=== PATIENT | female | born 1945 | race Caucasian/White ===

== ENCOUNTER 2018-01-21 15:02 | Inpatient (IN) ==
[2018-01-21] MEDS ORDERED: Fluticasone Propionate Nasal 50 MCG/SPRAY BOTTLE NS PRN (16:16)
[2018-01-21] MEDS: *HR* Metformin 500 MG TABLET PO SCH (18:01)
[2018-01-21] MEDS ORDERED: *HR* Dextrose 50 % in Water (Syg) 50 ML SYRINGE IVP PRN (20:25)
[2018-01-21] MEDS ORDERED: D5% in Water 1,000 ML IVC PRN (20:25)
[2018-01-21] MEDS ORDERED: Dextrose Gel 15 GM/37.5 ML TUBE PO PRN ×2 (20:25)
[2018-01-21] MEDS: Aspirin Enteric Coated 325 MG Tablet PO SCH (21:10)
[2018-01-21] MEDS: *HR* HYDROcodone/Acet 5/325 mg TABLET PO PRN (21:11)
[2018-01-21] MEDS: Magnesium Oxide 400 MG TABLET PO SCH (21:11)
[2018-01-21] MEDS: Gabapentin 100 MG CAPSULE PO SCH (21:11)
[2018-01-22 06:07] LABS: Basophils # 0.1 K/mcL (0.0-0.2); Basophils % 0.7 %; Eosinophils # 0.4 K/mcL (0.0-0.6); Eosinophils % 5.2 %; Hemoglobin 10.1 g/dL (11.5-15.4); Immature Granulocytes % 0.4 % (0-4); Lymphocytes % 29.2 %; Mean Corpuscular HGB Conc 33.7 g/dL (31.6-35.5); Mean Corpuscular Hemoglobin 30.7 pg (28.0-33.3); Mean Corpuscular Volume 91.2 fL (83.0-100.0); Mean Platelet Volume 9.7 fL (9.4-12.4); Monocytes # 0.7 K/mcL (0.0-1.3); Neutrophils # 3.8 K/mcL (1.6-8.9); Platelet Count 277 K/mcL (140-400); Red Blood Count 3.29 M/mcL (3.82-4.97); Red Cell Distribution Width 13.9 % (11.5-14.5); Segmented Neutrophils % 54.5 %
[2018-01-22 06:12] LABS: INR 1.2; Prothrombin Time 13.3 Seconds (9.4-12.1)
[2018-01-22] MEDS: *HR* HYDROcodone/Acet 5/325 mg TABLET PO PRN ×3 (06:23→22:06)
[2018-01-22 06:26] LABS: BUN/Creatinine Ratio 24 (6-26); Blood Urea Nitrogen 18 mg/dL (8-23); Calcium 9.5 mg/dL (8.6-10.3); Carbon Dioxide 27 mEq/L (23-29); Chloride 109 mEq/L (98-107); Glucose 146 mg/dL (70-105); Osmolality,Calculated 285 (280-300); Potassium 3.8 mEq/L (3.5-5.1); Sodium 135 mEq/L (136-145); eGFR For Non-African Americans > 60 (> 60)
[2018-01-22] MEDS: Vitamin B Complex/Vit C/Vit E 1 EACH TABLET PO SCH (08:09)
[2018-01-22] MEDS: Ascorbic Acid 500 MG TABLET PO SCH (08:09)
[2018-01-22] MEDS: Aspirin Enteric Coated 325 MG Tablet PO SCH ×2 (08:09→22:05)
[2018-01-22] MEDS: Multivit/Ca/Min/Fe/FA 1 TAB TABLET PO SCH (08:09)
[2018-01-22] MEDS: Magnesium Oxide 400 MG TABLET PO SCH ×2 (08:09→22:05)
[2018-01-22] MEDS: Gabapentin 100 MG CAPSULE PO SCH ×3 (08:10→22:05)
[2018-01-22] MEDS: (Flaxseed/Omega3,6,9/Fatty Acid [Flax Seed Oil 1,300 PO SCH (08:10)
[2018-01-22] MEDS: Insulin LISPRO 300 UNITS/3 ML VIAL SQ SCH ×4 (08:10→22:05)
[2018-01-22] MEDS: *HR* Metformin 500 MG TABLET PO SCH ×2 (08:10→17:38)
[2018-01-22] MEDS: CIDER VINEGAR 300 MG PO SCH (08:10)
[2018-01-22] MEDS: (Potassium [Potassium] 99 MG) PO SCH (08:11)
[2018-01-22] MEDS: (Mirabegron [Myrbetriq] 50 MG) PO SCH (08:11)
[2018-01-22] MEDS: (Linagliptin [Tradjenta] 5 MG) PO SCH (08:11)
[2018-01-22] MEDS: (Ubidecarenone [Co Q-10] 10 MG) PO SCH (08:12)
[2018-01-22] MEDS ORDERED: VITAMIN A 10000 UNIT PO SCH (09:00)
[2018-01-22] MEDS ORDERED: *HR* HYDROcodone/Acet 5/325 mg TABLET PO PRN (10:53)
--- NOTE | 2018-01-22 11:37 | Internal Med History&Physical ---
Addendum entered and electronically signed by Kimberly Wiseman 01/22/18 13:32: I have personally performed a face to face evaluation on this patient. I have reviewed and agree with the care plan. Original Note: Date of Encounter: 01/22/18 Time of Encounter: 11:26 Assessment and Plan (1) Status post total knee replacement, right Current visit: Yes Status: Acute Right knee and leg remains slightly swollen. Midline incision to right knee remains dry and intact with a minimal amount of ecchymosis noted surrounding the incision. No erythema. Patient has continuous icing available. Unable to assess patient's pain needs due to patient refusing to answer questions. Patient noted to be easily agitated and reviewed during questioning. We will continue with current pain medications. We will continue with current therapy (2) Anxiety Current visit: Yes Status: Acute Patient becoming easily agitated and reviewed during interview, refusing to answer questions about her pain status or her physical exam. Patient was admitted here as a patient several months earlier with similar incidents that I can recall during rounding at that time. We will consult psychology to evaluate patient. We will continue with current plan of care. (3) COPD (chronic obstructive pulmonary disease) Current visit: Yes Status: Chronic No acute issues. Lungs are clear throughout. Her productive cough and respiratory effort appears relaxed. We will continue with current medications. Qualifiers: COPD type: unspecified COPD Qualified Code(s): J44.9 - Chronic obstructive pulmonary disease, unspecified (4) HTN (hypertension) Current visit: No Status: Chronic Vital signs stable. We will continue his current medications Qualifiers: Hypertension type: essential hypertension Qualified Code(s): I10 - Essential (primary) hypertension (5) GERD (gastroesophageal reflux disease) Current visit: No Status: Chronic No current complaints. Patient refuses answer questions. We will continue with current medications. Qualifiers: Esophagitis presence: esophagitis presence not specified Qualified Code(s): K21.9 - Gastro-esophageal reflux disease without esophagitis (6) Diabetes type 2, controlled Current visit: Yes Status: Chronic No acute issues. Glucose somewhat controlled with fingersticks showing readings less than 200. We will continue with current medications. Qualifiers: Diabetes mellitus halfway insulin use: unspecified long term care social worker insulin use status Diabetes mellitus complication status: with unspecified complications Qualified Code(s): E11.8 - Type 2 diabetes mellitus with unspecified complications Internal Medicine - H&P: HPI Chief complaint: right total knee replacement Admitted From: Hospital to Hospital Transfer Plans for Post Hospital Care: Home History of present illness: Ms. Jiménez is a 72 year old female who had a right total knee replacement on 01/16/2018 at [facility]. Her medical records patient's recovery mainly postoperative was uneventful. Patient currently was asked about her pain control and was agitated and very rude with her initial answers. Patient stated, "I don't want to talk about my pain". When explained my concerns about her pain and how it could effect her therapy, she remained silent and stated that she didn't need anything and didn't want to talk about her pain. When asked if there was any issues, she stated no and questioned who I was. I re-introduced myself and she remained defiant in giving any information about her condition. She stated that she just wanted to be left alone. Patient then refused to answer any other questions, but did allow physical exam. Patient was admitted to this facility back in April for a left total knee replacement. During that admission patient did have issues with pain control with issues of emotional outburst. Past Med Surg Social Fam HX - Past Medical History Medical history: arthritis, CHF, diabetes, GERD, hyperlipidemia, hypertension, kidney stones Additional medical history: sleep apnea Psychiatric history: no psych history, anxiety - Past Surgical History Surgical History: cholecystectomy Additional surgical history: bilat hip replacement, lower back surgery - Social History Smoking Status: Never smoker Smokeless Tobacco Status: No Alcohol use: none Drug use: none - Family History Brother Hx Family Cancer: Yes (Prostate cancer, bone cancer) Internal Medicine - H&P: Meds Albuterol Sulfate [Proair Hfa] 2 inh PO Q4H PRN 07/24/15 [History] Mirabegron [Myrbetriq] 50 mg PO DAILY 07/24/15 [History] Multivitamin [Multivitamins] 1 cap PO DAILY 07/24/15 [History] metFORMIN [Glucophage] 500 mg PO BID 07/24/15 [History] Ascorbic Acid [Vitamin C] 1,000 mg PO DAILY 04/21/17 [History] Calcium Polycarbophil [Fibercon] 1,250 mg PO BID 04/21/17 [History] Cider Vinegar [Apple Cider Vinegar] 300 mg PO DAILY 04/21/17 [History] Flaxseed/Omega3,6,9/Fatty Acid [Flax Seed Oil 1,300 mg Softgel] 1 cap PO DAILY 04/21/17 [History] Linagliptin [Tradjenta] 5 mg PO DAILY 04/21/17 [History] Magnesium Oxide [Magnesium] 400 mg PO BID 04/21/17 [History] Pantoprazole Sodium [Protonix] 40 mg PO DAILY 04/21/17 [History] Solifenacin Succinate [Vesicare] 10 mg PO DAILY 04/21/17 [History] Ubidecarenone [Co Q-10] 10 mg PO DAILY 04/21/17 [History] Vitamin A 10,000 unit PO DAILY 04/21/17 [History] Vitamin B Complex Vit C No.4 [Super B Complex] 150 mg PO DAILY 04/21/17 [History] Fluticasone Propionate Nasal [Flonase] 1 spr NS DAILY PRN 01/16/18 [History] Gabapentin [Neurontin] 100 mg PO TID 01/16/18 [History] Potassium 99 mg PO DAILY 01/16/18 [History] Vitamin E 1,000 unit PO DAILY 01/16/18 [History] Aspirin Enteric Coated [Aspirin EC] 325 mg PO BID #20 tablet. 01/17/18 [Rx] Allergy/AdvReac Type Severity Reaction Status Date / Time acetaminophen AdvReac Itching Verified 01/16/18 13:07 [From Tylenol-Codeine #3] ciprofloxacin AdvReac Itching Verified 01/16/18 13:07 codeine AdvReac Itching Verified 01/16/18 13:07 [From Tylenol-Codeine #3] Oxycodone [From Percocet] AdvReac Itching Verified 01/16/18 13:07 Penicillins [PCN] AdvReac Itching Verified 01/16/18 13:07 Sulfa (Sulfonamide AdvReac Itching Verified 01/16/18 13:07 Antibiotics) All Systems PM: A 10-system review of systems was performed and is negative for pertinent findings except as documented above in the HPI. - Constitutional Constitutional: as per HPI, no chills, no fever(s), no night sweats - EENT Eyes: as per HPI, no change in vision, no discharge, no pain, no photophobia Ears: no ear discharge, no ear pain, no tinnitus Nose, mouth and throat: no dysphagia, no nasal discharge, no neck pain, no sore throat - Cardiovascular Cardiovascular ROS IM: as per HPI, no chest pain, no diaphoresis, no dyspnea, no lightheadedness, no palpitations, no syncope - Respiratory Respiratory: as per HPI, no cough, no dyspnea, no wheezing, no excessive phlegm production - Gastrointestinal Gastrointestinal: no abdominal pain, no diarrhea, no hematemesis, no hematochezia, no melena, no nausea, no vomiting - Genitourinary Genitourinary: no change in urinary stream, no dysuria, no flank pain, no hematuria - Musculoskeletal Musculoskeletal ROS IM: as per HPI, no numbness, no tingling - Integumentary Integumentary IM: no rash, no unusual bruising - Neurological Neurological ROS: no confusion, no convulsions, no focal weakness, no numbness, no tingling, no tremor(s) - Hematologic/Lymphatic Hematologic/Lymphatic: no easy bruising - Constitutional Vitals: Temp Pulse Resp BP Pulse Ox 97.5 F L 73 16 125/68 95 01/22/18 06:28 01/22/18 06:28 01/22/18 06:28 01/22/18 06:28 01/22/18 06:28 General appearance: Present: A&O X 3 Exam: Somewhat uncooperative with interview and unpleasant - Head Head exam: Present: atraumatic, normocephalic - Eye Eye exam: Present: PERRL, conjuntiva pink, sclera anicteric Pupils: Present: PERRL - Neck Neck exam general surgery: Present: supple, trachea midline. Absent: lymphadenopathy - Respiratory Respiratory exam: Present: CTAB. Absent: accessory muscle use, rales, rhonchi, wheezes - Cardiovascular Cardiovascular exam: Present: RRR, +S1, +S2. Absent: diastolic murmur, gallop, rubs, systolic murmur - GI/Abdominal GI/Abdominal exam: Present: normal bowel sounds, soft, no peritoneal signs. Absent: distended, tenderness - Extremities Exam Extremities exam: Present: warm, radial pulses palpable and symmetrical. Absent : calf tenderness, cyanotic, pedal edema Additional comments: Right knee and right leg are slightly swollen. Midline surgical incision on right knee remains dry and intact. No erythema. Slight amount of ecchymosis. - Neurological Exam Neurological exam: Present: CN II-XII intact, oriented X3, no focal deficits. Absent: pronater drift, facial droop, speech deficit - Skin Skin exam: Present: dry, intact Internal Med - H&P Results - Labs CBC & Chem 7: 01/22/18 05:30 01/22/18 05:30 Labs: Short CBC 01/22/18 Range/Units 05:30 WBC 6.9 (4.3-11.1) K/mcL Hgb 10.1 L (11.5-15.4) g/dL Hct 30.0 L (35.3-44.9) % Plt Count 277 (140-400) K/mcL Neutrophils # 3.8 (1.6-8.9) K/mcL BMP 01/22/18 05:30 Sodium 135 L Potassium 3.8 Chloride 109 H Carbon Dioxide 27 BUN 18 Creatinine 0.76 Glucose 146 H Calcium 9.5 - VTE Documentation of Mechanical Device: Venous foot pump, device
[2018-01-23 05:14] LABS: Hematocrit 28.1 % (35.3-44.9); Hemoglobin 9.3 g/dL (11.5-15.4); Mean Corpuscular HGB Conc 33.1 g/dL (31.6-35.5); Mean Corpuscular Hemoglobin 30.5 pg (28.0-33.3); Mean Corpuscular Volume 92.1 fL (83.0-100.0); Mean Platelet Volume 9.7 fL (9.4-12.4); Platelet Count 269 K/mcL (140-400); Red Blood Count 3.05 M/mcL (3.82-4.97); Red Cell Distribution Width 14.2 % (11.5-14.5)
[2018-01-23 05:30] LABS: BUN/Creatinine Ratio 26 (6-26); Blood Urea Nitrogen 18 mg/dL (8-23); Calcium 9.2 mg/dL (8.6-10.3); Carbon Dioxide 25 mEq/L (23-29); Chloride 107 mEq/L (98-107); Glucose 155 mg/dL (70-105); Osmolality,Calculated 295 (280-300); Sodium 140 mEq/L (136-145); eGFR For Non-African Americans > 60 (> 60)
[2018-01-23] MEDS ORDERED: DICLOFENAC TP PRN (05:33)
[2018-01-23] MEDS: Vitamin B Complex/Vit C/Vit E 1 EACH TABLET PO SCH (08:27)
[2018-01-23] MEDS: *HR* HYDROcodone/Acet 5/325 mg TABLET PO PRN ×3 (08:27→22:15)
[2018-01-23] MEDS: Multivit/Ca/Min/Fe/FA 1 TAB TABLET PO SCH (08:27)
[2018-01-23] MEDS: Ascorbic Acid 500 MG TABLET PO SCH (08:27)
[2018-01-23] MEDS: Aspirin Enteric Coated 325 MG Tablet PO SCH ×2 (08:27→21:44)
[2018-01-23] MEDS: Gabapentin 100 MG CAPSULE PO SCH ×3 (08:28→21:44)
[2018-01-23] MEDS: *HR* Metformin 500 MG TABLET PO SCH ×2 (08:28→17:07)
[2018-01-23] MEDS: Magnesium Oxide 400 MG TABLET PO SCH ×2 (08:28→21:44)
[2018-01-23] MEDS: Insulin LISPRO 300 UNITS/3 ML VIAL SQ SCH ×4 (08:28→21:44)
[2018-01-23] MEDS: (Ubidecarenone [Co Q-10] 10 MG) PO SCH (08:29)
[2018-01-23] MEDS: (Mirabegron [Myrbetriq] 50 MG) PO SCH (08:29)
[2018-01-23] MEDS: (Flaxseed/Omega3,6,9/Fatty Acid [Flax Seed Oil 1,300 PO SCH (08:29)
[2018-01-23] MEDS: (Linagliptin [Tradjenta] 5 MG) PO SCH (08:29)
[2018-01-23] MEDS: (Potassium [Potassium] 99 MG) PO SCH (08:29)
[2018-01-23] MEDS: CIDER VINEGAR 300 MG PO SCH (08:29)
--- NOTE | 2018-01-23 11:51 | Internal Med Progress Note ---
Addendum entered and electronically signed by Kimberly Wiseman 01/23/18 18:34: I have personally performed a face to face evaluation on this patient. I have reviewed and agree with the care plan. Original Note: Date of Encounter: 01/23/18 Time of Encounter: 11:43 - Assessment and plan (1) Status post total knee replacement, right Current Visit: Yes Status: Acute Assessment and plan: No acute issues. Patient states that physical therapy is progressing well. Today patient denies any pain to right knee and his quite pleasant during exam. Right knee remains slightly swollen with surgical incision appearing dry and intact. We will continue with current plan of care (2) Anxiety Current Visit: Yes Status: Acute Assessment and plan: No acute issues at this time. Patient is quite pleasant and interacting well with staff and myself during her exam. No behavior issues reported per nursing for overnight. Patient showing no aggressive behavior and appears quite pleasant with conversation (3) COPD (chronic obstructive pulmonary disease) Current Visit: Yes Status: Chronic Assessment and plan: No acute issues. Patient denies any dyspnea or productive cough. Lungs clear to auscultation. We will continue with current medications. Qualifiers: COPD type: unspecified COPD Qualified Code(s): J44.9 - Chronic obstructive pulmonary disease, unspecified (4) HTN (hypertension) Current Visit: No Status: Chronic Assessment and plan: Vital signs stable. We will continue with current medications Qualifiers: Hypertension type: essential hypertension Qualified Code(s): I10 - Essential (primary) hypertension (5) Diabetes type 2, controlled Current Visit: Yes Status: Chronic Assessment and plan: Glucose remains fairly well-controlled with most fingersticks readings less than 200. We will continue with current coverage. Qualifiers: Diabetes mellitus longterm insulin use: unspecified longterm insulin use status Diabetes mellitus complication status: with unspecified complications Qualified Code(s): E11.8 - Type 2 diabetes mellitus with unspecified complications - Time Spent With Patient less than 15 minutes - Subjective Interval history: Patient appears relaxed and currently denies any discomforts or shortness of breath. This morning patient is quite pleasant and interacting well with staff and myself during exam. States that physical therapy is progressing well. - Constitutional Vitals: Temp Pulse Resp BP Pulse Ox 98.5 F 78 16 156/74 93 01/23/18 08:35 01/23/18 08:35 01/23/18 08:35 01/23/18 08:35 01/23/18 08:35 General appearance: Present: A&O X 3 - Head Head exam: Present: atraumatic, normocephalic - Eye Eye exam: Present: PERRL, conjuntiva pink, sclera anicteric Pupils: Present: PERRL - Neck Neck exam general surgery: Present: supple, trachea midline. Absent: lymphadenopathy - Respiratory Respiratory exam: Present: CTAB. Absent: accessory muscle use, rales, rhonchi, wheezes - Cardiovascular Cardiovascular exam: Present: RRR, +S1, +S2. Absent: diastolic murmur, gallop, rubs, systolic murmur - GI/Abdominal GI/Abdominal exam: Present: normal bowel sounds, soft, no peritoneal signs. Absent: distended, tenderness - Extremities Exam Extremities exam: Present: warm, radial pulses palpable and symmetrical. Absent: calf tenderness, cyanotic, pedal edema Additional comments: Right knee and leg remains slightly swollen. Surgical incision to right knee remains dry and intact with no ecchymosis or erythema noted. - Neurological Exam Neurological exam: Present: CN II-XII intact, oriented X3, no focal deficits. Absent: pronater drift, facial droop, speech deficit - Skin Skin exam: Present: dry, intact Internal Medicine: Result - Labs CBC & Chem 7: 01/23/18 04:18 01/23/18 04:18 Labs: Short CBC 01/23/18 Range/Units 04:18 WBC 6.8 (4.3-11.1) K/mcL Hgb 9.3 L (11.5-15.4) g/dL Hct 28.1 L (35.3-44.9) % Plt Count 269 (140-400) K/mcL BMP 01/23/18 04:18 Sodium 140 Potassium 4.0 Chloride 107 Carbon Dioxide 25 BUN 18 Creatinine 0.69 Glucose 155 H Calcium 9.2 - ABG Interpretation ABG results: PT/INR, D-dimer PT 13.3 Seconds (9.4-12.1) H 01/22/18 05:30 - VTE Documentation of Mechanical Device: Venous foot pump, device Consult Discharge Plan - Plan Referrals: Pelon Allen MD [Primary Care Provider] -
[2018-01-24] MEDS: *HR* HYDROcodone/Acet 5/325 mg TABLET PO PRN ×3 (06:00→21:54)
[2018-01-24] MEDS: Aspirin Enteric Coated 325 MG Tablet PO SCH ×2 (07:52→21:49)
[2018-01-24] MEDS: Vitamin B Complex/Vit C/Vit E 1 EACH TABLET PO SCH (07:53)
[2018-01-24] MEDS: Ascorbic Acid 500 MG TABLET PO SCH (07:53)
[2018-01-24] MEDS: Gabapentin 100 MG CAPSULE PO SCH ×3 (07:53→21:49)
[2018-01-24] MEDS: Magnesium Oxide 400 MG TABLET PO SCH ×2 (07:53→21:49)
[2018-01-24] MEDS: *HR* Metformin 500 MG TABLET PO SCH ×2 (07:53→17:50)
[2018-01-24] MEDS: Multivit/Ca/Min/Fe/FA 1 TAB TABLET PO SCH (07:53)
[2018-01-24] MEDS: (Potassium [Potassium] 99 MG) PO SCH (07:54)
[2018-01-24] MEDS: (Ubidecarenone [Co Q-10] 10 MG) PO SCH (07:54)
[2018-01-24] MEDS: Insulin LISPRO 300 UNITS/3 ML VIAL SQ SCH ×4 (07:54→20:50)
[2018-01-24] MEDS: (Mirabegron [Myrbetriq] 50 MG) PO SCH (07:54)
[2018-01-24] MEDS: CIDER VINEGAR 300 MG PO SCH (07:54)
[2018-01-24] MEDS: (Linagliptin [Tradjenta] 5 MG) PO SCH (07:54)
[2018-01-24] MEDS: (Flaxseed/Omega3,6,9/Fatty Acid [Flax Seed Oil 1,300 PO SCH (07:54)
[2018-01-25] MEDS: Insulin LISPRO 300 UNITS/3 ML VIAL SQ SCH ×4 (08:24→21:07)
[2018-01-25] MEDS: Vitamin B Complex/Vit C/Vit E 1 EACH TABLET PO SCH (08:25)
[2018-01-25] MEDS: Multivit/Ca/Min/Fe/FA 1 TAB TABLET PO SCH (08:26)
[2018-01-25] MEDS: Ascorbic Acid 500 MG TABLET PO SCH (08:26)
[2018-01-25] MEDS: Gabapentin 100 MG CAPSULE PO SCH ×3 (08:26→21:06)
[2018-01-25] MEDS: Aspirin Enteric Coated 325 MG Tablet PO SCH ×2 (08:26→21:04)
[2018-01-25] MEDS: Magnesium Oxide 400 MG TABLET PO SCH ×2 (08:26→21:06)
[2018-01-25] MEDS: *HR* Metformin 500 MG TABLET PO SCH ×2 (08:26→16:45)
[2018-01-25] MEDS: (Linagliptin [Tradjenta] 5 MG) PO SCH (08:27)
[2018-01-25] MEDS: (Ubidecarenone [Co Q-10] 10 MG) PO SCH (08:27)
[2018-01-25] MEDS: (Flaxseed/Omega3,6,9/Fatty Acid [Flax Seed Oil 1,300 PO SCH (08:27)
[2018-01-25] MEDS: CIDER VINEGAR 300 MG PO SCH (08:27)
[2018-01-25] MEDS: (Potassium [Potassium] 99 MG) PO SCH (08:27)
[2018-01-25] MEDS: (Mirabegron [Myrbetriq] 50 MG) PO SCH (08:27)
--- NOTE | 2018-01-25 12:09 | Internal Med Progress Note ---
Date of Encounter: 01/24/18 Time of Encounter: 15:50 - Subjective Interval history: - Assessment and plan (1) Status post total knee replacement, right Current Visit: Yes Status: Acute Assessment and plan: admited for deconditioning and therapy. No acute issues. Patient states that physical therapy is progressing well. says pain is well controlled, Right knee remains slightly swollen with surgical incision appearing dry and intact. pt is on bid asa per surgery. somewhat improved. We will continue with current plan of care (2) Anxiety Current Visit: Yes Status: Acute Assessment and plan: No acute issues at this time. continue current plan of care . No behavior issues reported per nursing for overnight. Patient showing no aggressive behavior and appears quite pleasant (3) COPD (chronic obstructive pulmonary disease) Current Visit: Yes Status: Chronic Assessment and plan: No acute issues. Patient denies any dyspnea or productive cough. Lungs clear to auscultation. We will continue with current medications. Qualifiers: COPD type: unspecified COPD Qualified Code(s): J44.9 - Chronic obstructive pulmonary disease, unspecified (4) HTN (hypertension) Current Visit: No Status: Chronic Assessment and plan: Vital signs stable. We will continue with current medications Qualifiers: Hypertension type: essential hypertension Qualified Code(s): I10 - Essential (primary) hypertension (5) Diabetes type 2, controlled Current Visit: Yes Status: Chronic Assessment and plan: Glucose remains fairly well-controlled with most fingersticks readings less than 200. We will continue with current coverage. Qualifiers: Diabetes mellitus predatory animal exterminator insulin use: unspecified mcc insulin use status Diabetes mellitus complication status: with unspecified complications Qualified Code(s): E11.8 - Type 2 diabetes mellitus with unspecified complications - Subjective Interval history: Patient appears relaxed and currently denies any discomforts or shortness of breath. This morning patient is quite pleasant and interacting well with staff and myself during exam. States that physical therapy is progressing well. EXAM General appearance: Present: A&O X 3 - Head Head exam: Present: atraumatic, normocephalic - Eye Eye exam: Present: PERRL, conjuntiva pink, sclera anicteric Pupils: Present: PERRL - Neck Neck exam general surgery: Present: supple, trachea midline. Absent: lymphadenopathy - Respiratory Respiratory exam: Present: CTAB. Absent: accessory muscle use, rales, rhonchi, wheezes - Cardiovascular Cardiovascular exam: Present: RRR, +S1, +S2. Absent: diastolic murmur, gallop, rubs, systolic murmur - GI/Abdominal GI/Abdominal exam: Present: normal bowel sounds, soft, no peritoneal signs. Absent: distended, tenderness - Extremities Exam Extremities exam: Present: warm, radial pulses palpable and symmetrical. Absent: calf tenderness, cyanotic, pedal edema Additional comments: Right knee and leg remains slightly swollen. Surgical incision to right knee remains dry and intact with no ecchymosis or erythema noted. - Neurological Exam Neurological exam: Present: CN II-XII intact, oriented X3, no focal deficits. Absent: pronater drift, facial droop, speech deficit - Skin Skin exam: Present: dry, intact - Constitutional Vitals: Temp Pulse Resp BP Pulse Ox 97.9 F 86 16 161/73 95 01/25/18 07:00 01/25/18 07:00 01/25/18 07:00 01/25/18 07:00 01/25/18 07:00 General appearance: Present: A&O X 3 Internal Medicine: Result - Labs CBC & Chem 7: 01/23/18 04:18 01/23/18 04:18 - ABG Interpretation ABG results: PT/INR, D-dimer PT 13.3 Seconds (9.4-12.1) H 01/22/18 05:30 - VTE Documentation of Mechanical Device: Venous foot pump, device Consult Discharge Plan - Plan Referrals: Pelon Allen MD [Primary Care Provider] -
[2018-01-25] MEDS: *HR* HYDROcodone/Acet 5/325 mg TABLET PO PRN (15:37)
[2018-01-26 05:17] LABS: Hematocrit 29.7 % (35.3-44.9); Hemoglobin 9.8 g/dL (11.5-15.4); Mean Corpuscular Hemoglobin 30.3 pg (28.0-33.3); Mean Platelet Volume 9.3 fL (9.4-12.4); Platelet Count 304 K/mcL (140-400); Red Blood Count 3.23 M/mcL (3.82-4.97); Red Cell Distribution Width 14.5 % (11.5-14.5)
[2018-01-26 05:37] LABS: BUN/Creatinine Ratio 21 (6-26); Blood Urea Nitrogen 14 mg/dL (8-23); Calcium 9.2 mg/dL (8.6-10.3); Carbon Dioxide 26 mEq/L (23-29); Chloride 106 mEq/L (98-107); Glucose 148 mg/dL (70-105); Osmolality,Calculated 293 (280-300); Potassium 3.9 mEq/L (3.5-5.1); Sodium 140 mEq/L (136-145); eGFR For Non-African Americans > 60 (> 60)
[2018-01-26] MEDS: *HR* HYDROcodone/Acet 5/325 mg TABLET PO PRN ×4 (05:51→23:45)
[2018-01-26] MEDS: *HR* Metformin 500 MG TABLET PO SCH ×2 (09:14→18:46)
[2018-01-26] MEDS: Vitamin B Complex/Vit C/Vit E 1 EACH TABLET PO SCH (09:14)
[2018-01-26] MEDS: Aspirin Enteric Coated 325 MG Tablet PO SCH ×2 (09:14→20:17)
[2018-01-26] MEDS: (Ubidecarenone [Co Q-10] 10 MG) PO SCH (09:14)
[2018-01-26] MEDS: Gabapentin 100 MG CAPSULE PO SCH ×3 (09:14→20:18)
[2018-01-26] MEDS: Multivit/Ca/Min/Fe/FA 1 TAB TABLET PO SCH (09:14)
[2018-01-26] MEDS: (Mirabegron [Myrbetriq] 50 MG) PO SCH (09:15)
[2018-01-26] MEDS: CIDER VINEGAR 300 MG PO SCH (09:15)
[2018-01-26] MEDS: Magnesium Oxide 400 MG TABLET PO SCH ×3 (09:15→20:17)
[2018-01-26] MEDS: (Potassium [Potassium] 99 MG) PO SCH (09:15)
[2018-01-26] MEDS: (Flaxseed/Omega3,6,9/Fatty Acid [Flax Seed Oil 1,300 PO SCH (09:15)
[2018-01-26] MEDS: (Linagliptin [Tradjenta] 5 MG) PO SCH (09:15)
[2018-01-26] MEDS: Insulin LISPRO 300 UNITS/3 ML VIAL SQ SCH ×4 (12:04→20:20)
[2018-01-26] MEDS: Ascorbic Acid 500 MG TABLET PO SCH (12:09)
--- NOTE | 2018-01-26 13:06 | Internal Med Progress Note ---
Date of Encounter: 01/26/18 Time of Encounter: 13:04 - Assessment and plan (1) Status post total knee replacement, right Current Visit: Yes Status: Acute Assessment and plan: Continue PT and OT. Continue current pain medication. Follow up with ortho as scheduled. (2) COPD (chronic obstructive pulmonary disease) Current Visit: Yes Status: Chronic Assessment and plan: Stable. Continue current medication. Qualifiers: COPD type: unspecified COPD Qualified Code(s): J44.9 - Chronic obstructive pulmonary disease, unspecified (3) HTN (hypertension) Current Visit: Yes Status: Chronic Assessment and plan: Controlled with current medication. Monitor blood pressure. Qualifiers: Hypertension type: essential hypertension Qualified Code(s): I10 - Essential (primary) hypertension (4) Diabetes type 2, controlled Current Visit: Yes Status: Chronic Assessment and plan: Controlled with current medication. Monitor fingerstick blood sugar. Qualifiers: Diabetes mellitus snf insulin use: unspecified ocean transportation intermediary insulin use status Diabetes mellitus complication status: with unspecified complications Qualified Code(s): E11.8 - Type 2 diabetes mellitus with unspecified complications - Time Spent With Patient less than 15 minutes - Subjective Interval history: Patient participating well with therapy. Modified independent on unit. States pain is controlled with current medication. Planning for discharge to home tomorrow. - Constitutional Vitals: Temp Pulse Resp BP Pulse Ox 98.1 F 76 16 134/79 98 01/26/18 07:17 01/26/18 07:17 01/26/18 07:17 01/26/18 07:17 01/26/18 07:17 General appearance: Present: cooperative, A&O X 3, pleasant, no acute distress, obese, answers questions appropriately - Head Head exam: Present: atraumatic, normocephalic - Eye Eye exam: Present: PERRL, conjuntiva pink, sclera anicteric Pupils: Present: PERRL - Neck Neck exam general surgery: Present: supple, trachea midline. Absent: lymphadenopathy - Respiratory Respiratory exam: Present: CTAB. Absent: accessory muscle use, rales, rhonchi, wheezes - Cardiovascular Cardiovascular exam: Present: RRR, +S1, +S2. Absent: diastolic murmur, gallop, rubs, systolic murmur - GI/Abdominal GI/Abdominal exam: Present: normal bowel sounds, soft, no peritoneal signs. Absent: distended, tenderness - Extremities Exam Extremities exam: Present: warm, radial pulses palpable and symmetrical. Absent: calf tenderness, cyanotic, pedal edema Additional comments: Non-pitting edema to bilateral lower extremities. - Incison Comments: Knee incision dressing dry and intact. Well approximated. No sign of infection. - Neurological Exam Neurological exam: Present: CN II-XII intact, oriented X3, no focal deficits. Absent: pronater drift, facial droop, speech deficit - Skin Skin exam: Present: dry, intact Internal Medicine: Result - Labs CBC & Chem 7: 01/26/18 04:26 01/26/18 04:26 Labs: Short CBC 01/26/18 Range/Units 04:26 WBC 6.8 (4.3-11.1) K/mcL Hgb 9.8 L (11.5-15.4) g/dL Hct 29.7 L (35.3-44.9) % Plt Count 304 (140-400) K/mcL BMP 01/26/18 04:26 Sodium 140 Potassium 3.9 Chloride 106 Carbon Dioxide 26 BUN 14 Creatinine 0.67 Glucose 148 H Calcium 9.2 - ABG Interpretation ABG results: PT/INR, D-dimer PT 13.3 Seconds (9.4-12.1) H 01/22/18 05:30 - VTE Documentation of Mechanical Device: Venous foot pump, device Consult Discharge Plan - Plan Referrals: Pelon Allen MD [Primary Care Provider] -
[2018-01-27] MEDS: Magnesium Oxide 400 MG TABLET PO SCH ×2 (08:04→21:06)
[2018-01-27] MEDS: Gabapentin 100 MG CAPSULE PO SCH ×3 (08:04→21:06)
[2018-01-27] MEDS: *HR* Metformin 500 MG TABLET PO SCH ×2 (08:04→16:23)
[2018-01-27] MEDS: Aspirin Enteric Coated 325 MG Tablet PO SCH ×2 (08:04→21:07)
[2018-01-27] MEDS: Vitamin B Complex/Vit C/Vit E 1 EACH TABLET PO SCH (08:04)
[2018-01-27] MEDS: Ascorbic Acid 500 MG TABLET PO SCH (08:05)
[2018-01-27] MEDS: Multivit/Ca/Min/Fe/FA 1 TAB TABLET PO SCH (08:05)
[2018-01-27] MEDS: (Linagliptin [Tradjenta] 5 MG) PO SCH (08:09)
[2018-01-27] MEDS: CIDER VINEGAR 300 MG PO SCH (08:09)
[2018-01-27] MEDS: (Mirabegron [Myrbetriq] 50 MG) PO SCH (08:09)
[2018-01-27] MEDS: (Flaxseed/Omega3,6,9/Fatty Acid [Flax Seed Oil 1,300 PO SCH (08:09)
[2018-01-27] MEDS: (Potassium [Potassium] 99 MG) PO SCH (08:09)
[2018-01-27] MEDS: Insulin LISPRO 300 UNITS/3 ML VIAL SQ SCH ×4 (08:09→21:23)
[2018-01-27] MEDS: (Ubidecarenone [Co Q-10] 10 MG) PO SCH (08:10)
--- NOTE | 2018-01-27 08:54 | Physician Discharge Referral ---
Home Health/Hosp Referral Info Transfer to: Home Health Provider in Charge Post Discharge: PCP - Diagnosis (1) Status post total knee replacement, right Priority: Primary Status: Acute (2) COPD (chronic obstructive pulmonary disease) Priority: Secondary Status: Chronic (3) HTN (hypertension) Priority: Secondary Status: Chronic (4) Diabetes type 2, controlled Priority: Secondary Status: Chronic - Respiratory Orders Smoking Cessation: Smoking cessation has been advised. For more information, call the [place] Tobacco Quit Line at 9-529-MJPV-NOW. - Diet/Nutrition Diet/Nutrition Orders: No Concentrated Sweets - Activity Activity Orders: Walker - Services Needed Following services are medically necessary services: Nursing, Physical Therapy - Transfer Medications Home Medications: Albuterol Sulfate [Proair Hfa] 2 inh PO Q4H PRN 07/24/15 [History] Mirabegron [Myrbetriq] 50 mg PO DAILY 07/24/15 [History] Multivitamin [Multivitamins] 1 cap PO DAILY 07/24/15 [History] metFORMIN [Glucophage] 500 mg PO BID 07/24/15 [History] Ascorbic Acid [Vitamin C] 1,000 mg PO DAILY 04/21/17 [History] Calcium Polycarbophil [Fibercon] 1,250 mg PO BID 04/21/17 [History] Cider Vinegar [Apple Cider Vinegar] 300 mg PO DAILY 04/21/17 [History] Flaxseed/Omega3,6,9/Fatty Acid [Flax Seed Oil 1,300 mg Softgel] 1 cap PO DAILY 04/21/17 [History] Linagliptin [Tradjenta] 5 mg PO DAILY 04/21/17 [History] Magnesium Oxide [Magnesium] 400 mg PO BID 04/21/17 [History] Pantoprazole Sodium [Protonix] 40 mg PO DAILY 04/21/17 [History] Solifenacin Succinate [Vesicare] 10 mg PO DAILY 04/21/17 [History] Ubidecarenone [Co Q-10] 10 mg PO DAILY 04/21/17 [History] Vitamin A 10,000 unit PO DAILY 04/21/17 [History] Vitamin B Complex Vit C No.4 [Super B Complex] 150 mg PO DAILY 04/21/17 [History] Fluticasone Propionate Nasal [Flonase] 1 spr NS DAILY PRN 01/16/18 [History] Gabapentin [Neurontin] 100 mg PO TID 01/16/18 [History] Potassium 99 mg PO DAILY 01/16/18 [History] Vitamin E 1,000 unit PO DAILY 01/16/18 [History] Aspirin Enteric Coated [Aspirin EC] 325 mg PO BID #20 tablet. 01/17/18 [Rx] Allergies/Adverse Reactions: Allergy/AdvReac Type Severity Reaction Status Date / Time acetaminophen AdvReac Itching Verified 01/16/18 13:07 [From Tylenol-Codeine #3] ciprofloxacin AdvReac Itching Verified 01/16/18 13:07 codeine AdvReac Itching Verified 01/16/18 13:07 [From Tylenol-Codeine #3] Oxycodone [From Percocet] AdvReac Itching Verified 01/16/18 13:07 Penicillins [PCN] AdvReac Itching Verified 01/16/18 13:07 Sulfa (Sulfonamide AdvReac Itching Verified 01/16/18 13:07 Antibiotics) Certification: Further, I certify that my clinical findings support that this patient is homebound (i.e. absences from home require considerable and taxing effort and are for medical reasons or yazdanism services or infrequently or short duration when for other reasons) because: Homebound Reason: Patient requires assistance of a person or device to safely leave home, Post-surgery restriction and or conditions limit ability to leave home Attestation: My signature below is to certify that this patient is under my care and that I, or nurse practitioner, or a physician's client account assistant working with me, has a [id number] encounter with this patient.
--- NOTE | 2018-01-27 12:41 | Discharge Summary ---
Orders not resulted at time of discharge: Pending orders 01/27/18 11:55 Venous Doppler [EV venous imaging LE RT] Stat Date of Encounter: 01/27/18 Time of Encounter: 12:39 - Discharge Diagnosis (1) Status post total knee replacement, right Priority: Primary Status: Acute Comments: Continue home health physical therapy. Follow up with ortho as scheduled. Pain medication effective for pain. (2) COPD (chronic obstructive pulmonary disease) Priority: Secondary Status: Chronic Comments: Controlled. Continue inhaled meds. Follow up with PCP. Qualifiers: COPD type: unspecified COPD Qualified Code(s): J44.9 - Chronic obstructive pulmonary disease, unspecified (3) HTN (hypertension) Priority: Secondary Status: Chronic Comments: Controlled with current medication. Monitor blood pressure. Qualifiers: Hypertension type: essential hypertension Qualified Code(s): I10 - Essential (primary) hypertension (4) Diabetes type 2, controlled Priority: Secondary Status: Chronic Comments: Controlled with current medication. Monitor fingerstick blood sugar. Follow up with PCP. Qualifiers: Diabetes mellitus lokie engineer insulin use: unspecified fci insulin use status Diabetes mellitus complication status: with unspecified complications Qualified Code(s): E11.8 - Type 2 diabetes mellitus with unspecified complications Hospital course: Ms. Jiménez is a 72 year old female discharging to home status post right total knee replacement. Patient will go home with home health PT and nursing. Has been ambulated as modified independent on unit with Walker. Pain medications effective for pain. Has developed tenderness in right upper calf area. Will order Tiffany Doppler and Lovenox. Patient was agreed to stay until Doppler's complete this evening or tomorrow. Discharge discussed with: patient, nurse, social work - Time Spent with Patient Total time spent providing and/or coordinating discharge services: Less than 30 minutes - Discharge Medications Home Medications: Albuterol Sulfate [Proair Hfa] 2 inh PO Q4H PRN 07/24/15 [History] Mirabegron [Myrbetriq] 50 mg PO DAILY 07/24/15 [History] Multivitamin [Multivitamins] 1 cap PO DAILY 07/24/15 [History] metFORMIN [Glucophage] 500 mg PO BID 07/24/15 [History] Ascorbic Acid [Vitamin C] 1,000 mg PO DAILY 04/21/17 [History] Calcium Polycarbophil [Fibercon] 1,250 mg PO BID 04/21/17 [History] Cider Vinegar [Apple Cider Vinegar] 300 mg PO DAILY 04/21/17 [History] Flaxseed/Omega3,6,9/Fatty Acid [Flax Seed Oil 1,300 mg Softgel] 1 cap PO DAILY 04/21/17 [History] Linagliptin [Tradjenta] 5 mg PO DAILY 04/21/17 [History] Magnesium Oxide [Magnesium] 400 mg PO BID 04/21/17 [History] Pantoprazole Sodium [Protonix] 40 mg PO DAILY 04/21/17 [History] Solifenacin Succinate [Vesicare] 10 mg PO DAILY 04/21/17 [History] Ubidecarenone [Co Q-10] 10 mg PO DAILY 04/21/17 [History] Vitamin A 10,000 unit PO DAILY 04/21/17 [History] Vitamin B Complex Vit C No.4 [Super B Complex] 150 mg PO DAILY 04/21/17 [History] Fluticasone Propionate Nasal [Flonase] 1 spr NS DAILY PRN 01/16/18 [History] Gabapentin [Neurontin] 100 mg PO TID 01/16/18 [History] Potassium 99 mg PO DAILY 01/16/18 [History] Vitamin E 1,000 unit PO DAILY 01/16/18 [History] Aspirin Enteric Coated [Aspirin EC] 325 mg PO BID #20 tablet.dr 01/17/18 [Rx] Polyethylene Glycol 3350 [MiraLAX] 17 gm PO DAILY PRN powd.pack 01/27/18 [Rx] Potassium Chloride 20 meq PO DAILY tab.er.prt 01/27/18 [Rx] Allergies/Adverse Reactions: Allergy/AdvReac Type Severity Reaction Status Date / Time acetaminophen AdvReac Itching Verified 01/16/18 13:07 [From Tylenol-Codeine #3] ciprofloxacin AdvReac Itching Verified 01/16/18 13:07 codeine AdvReac Itching Verified 01/16/18 13:07 [From Tylenol-Codeine #3] Oxycodone [From Percocet] AdvReac Itching Verified 01/16/18 13:07 Penicillins [PCN] AdvReac Itching Verified 01/16/18 13:07 Sulfa (Sulfonamide AdvReac Itching Verified 01/16/18 13:07 Antibiotics) Date of admission: 01/21/18 15:02 Primary care physician: Pelon Allen MD Consults: 01/21/18 15:52 Consult to Occupational Therapy [CONS] Routine Comment: Evaluate, develop and implement POC Reason for Consult: rehab Does patient have active BEDREST order?: No Is patient medically & hemodynamically stable?: Yes Patient assessed for mobility or mobilized this visit?: Yes Consult to Physical Therapy [CONS] Routine Comment: Evaluate, develop and implement POC Reason for Consult: rehab Does patient have active BEDREST order?: No Is patient medically & hemodynamically stable?: Yes Patient assessed for mobility or mobilized this visit?: Yes Consult to Recreational Therapy [CONS] Routine Comment: Evaluate, develop and implement POC Consult to Mortar Man [CONS] Routine Reason for SW Consult: discharge planning 01/21/18 16:54 Consult to Pastoral Services [CONS] Routine Comment: 01/22/18 11:18 Consult to Psychology [CONS] Routine Consulting Provider: Rebecca Rodriguez Reason for Consult: agitation, manipulative behavior Time Notified: 11:20 Call Completed: Yes Discharging clinician: Dennys Heath Anticipated date of discharge: 01/27/18 - Constitutional Vitals: Temp Pulse Resp BP Pulse Ox 97.6 F 75 16 119/69 96 01/26/18 19:17 01/27/18 12:03 01/27/18 12:03 01/27/18 12:03 01/27/18 12:03 General appearance: Present: cooperative, A&O X 3, pleasant, no acute distress, obese, answers questions appropriately - Head Head exam: Present: atraumatic, normocephalic - Eye Eye exam: Present: PERRL, conjuntiva pink, sclera anicteric Pupils: Present: PERRL - Neck Neck exam general surgery: Present: supple, trachea midline. Absent: lymphadenopathy - Respiratory Respiratory exam: Present: CTAB. Absent: accessory muscle use, rales, rhonchi, wheezes - Cardiovascular Cardiovascular exam: Present: RRR, +S1, +S2. Absent: diastolic murmur, gallop, rubs, systolic murmur - GI/Abdominal GI/Abdominal exam: Present: normal bowel sounds, soft, no peritoneal signs. Absent: distended, tenderness - Extremities Exam Extremities exam: Present: warm, radial pulses palpable and symmetrical. Absent: calf tenderness, cyanotic, pedal edema Additional comments: Bilateral lower extremity non-pitting edema. Tenderness to calf on right lower extremity - Incison Comments: Right knee incision dressing dry and intact. - Neurological Exam Neurological exam: Present: CN II-XII intact, oriented X3, no focal deficits. Absent: pronater drift, facial droop, speech deficit - Skin Skin exam: Present: dry, intact - Patient Status Disposition: Home Health Service Condition: Good Functional capacity at discharge: uses cane/walker Overall status at discharge: patient is progressing back to baseline - Discharge Instructions Instructions: Total Knee Replacement (DC), Diabetes Mellitus Type 2 in Adults (DC), Chronic Obstructive Pulmonary Disease (DC) Follow Up With: Pelon Allen MD [Primary Care Provider] - 02/02/18 2:00 pm Sushil Hernandez MD [Partnered Physician] - 01/30/18 10:00 am - Diet and Activity Activity: as per physical therapy Diet: diabetic diet - VTE Documentation of Mechanical Device: Venous foot pump, device
[2018-01-27] MEDS: *HR* HYDROcodone/Acet 5/325 mg TABLET PO PRN (13:05)
[2018-01-27] MEDS: *HR* Enoxaparin 40 MG/0.4 ML SYRINGE SQ SCH (16:30)
[2018-01-27] MEDS: *HR* OxyCODONE/APAP 10/325 TABLET PO PRN (22:44)
[2018-01-28] MEDS: *HR* Enoxaparin 40 MG/0.4 ML SYRINGE SQ SCH (05:23)
[2018-01-28] MEDS: *HR* OxyCODONE/APAP 10/325 TABLET PO PRN ×2 (05:28→14:31)
[2018-01-28 07:13] VITALS: BP 144/72
[2018-01-28] MEDS: Aspirin Enteric Coated 325 MG Tablet PO SCH (09:12)
[2018-01-28] MEDS: Magnesium Oxide 400 MG TABLET PO SCH (09:12)
[2018-01-28] MEDS: Vitamin B Complex/Vit C/Vit E 1 EACH TABLET PO SCH (09:12)
[2018-01-28] MEDS: Ascorbic Acid 500 MG TABLET PO SCH (09:12)
[2018-01-28] MEDS: Multivit/Ca/Min/Fe/FA 1 TAB TABLET PO SCH (09:12)
[2018-01-28] MEDS: *HR* Metformin 500 MG TABLET PO SCH (09:12)
[2018-01-28] MEDS: Gabapentin 100 MG CAPSULE PO SCH ×2 (09:13→14:31)
[2018-01-28] MEDS: (Flaxseed/Omega3,6,9/Fatty Acid [Flax Seed Oil 1,300 PO SCH (09:13)
[2018-01-28] MEDS: CIDER VINEGAR 300 MG PO SCH (09:13)
[2018-01-28] MEDS: (Ubidecarenone [Co Q-10] 10 MG) PO SCH (09:14)
[2018-01-28] MEDS: (Mirabegron [Myrbetriq] 50 MG) PO SCH (09:14)
[2018-01-28] MEDS: (Potassium [Potassium] 99 MG) PO SCH (09:14)
[2018-01-28] MEDS: (Linagliptin [Tradjenta] 5 MG) PO SCH (09:14)
[2018-01-28] MEDS: Insulin LISPRO 300 UNITS/3 ML VIAL SQ SCH ×2 (09:19→13:23)
--- NOTE | 2018-01-28 14:35 | Internal Med Progress Note ---
Date of Encounter: 01/28/18 Time of Encounter: 14:33 - Assessment and plan (1) Status post total knee replacement, right Current Visit: Yes Status: Acute Assessment and plan: Continue PT and OT. Continue current pain medication. Follow up with ortho as scheduled. (2) COPD (chronic obstructive pulmonary disease) Current Visit: Yes Status: Chronic Assessment and plan: Stable. Continue current medication. Qualifiers: COPD type: unspecified COPD Qualified Code(s): J44.9 - Chronic obstructive pulmonary disease, unspecified (3) HTN (hypertension) Current Visit: Yes Status: Chronic Assessment and plan: Controlled with current medication. Monitor blood pressure. Qualifiers: Hypertension type: essential hypertension Qualified Code(s): I10 - Essential (primary) hypertension (4) Diabetes type 2, controlled Current Visit: Yes Status: Chronic Assessment and plan: Controlled with current medication. Monitor fingerstick blood sugar. Qualifiers: Diabetes mellitus alf insulin use: unspecified oysterman insulin use status Diabetes mellitus complication status: with unspecified complications Qualified Code(s): E11.8 - Type 2 diabetes mellitus with unspecified complications - Time Spent With Patient less than 15 minutes - Subjective Interval history: Patient participating well with therapy. Modified independent on unit. States pain is controlled with current medication. Planning for discharge to home today. Denies fever, chills, nausea vomiting or diarrhea. - Constitutional Vitals: Temp Pulse Resp BP Pulse Ox 97.9 F 75 18 144/72 95 01/28/18 07:12 01/28/18 07:12 01/28/18 07:12 01/28/18 07:12 01/28/18 07:12 General appearance: Present: cooperative, A&O X 3, pleasant, no acute distress, obese, answers questions appropriately - Head Head exam: Present: atraumatic, normocephalic - Eye Eye exam: Present: PERRL, conjuntiva pink, sclera anicteric Pupils: Present: PERRL - Neck Neck exam general surgery: Present: supple, trachea midline. Absent: lymphadenopathy - Respiratory Respiratory exam: Present: CTAB. Absent: accessory muscle use, rales, rhonchi, wheezes - Cardiovascular Cardiovascular exam: Present: RRR, +S1, +S2. Absent: diastolic murmur, gallop, rubs, systolic murmur - GI/Abdominal GI/Abdominal exam: Present: normal bowel sounds, soft, no peritoneal signs. Absent: distended, tenderness - Extremities Exam Extremities exam: Present: warm, radial pulses palpable and symmetrical. Absent: calf tenderness, cyanotic, pedal edema Additional comments: Non-pitting bilateral lower extremity edema - Incison Comments: Right knee incision well approximated. No drainage. - Neurological Exam Neurological exam: Present: CN II-XII intact, oriented X3, no focal deficits. Absent: pronater drift, facial droop, speech deficit - Skin Skin exam: Present: dry, intact Internal Medicine: Result - Labs CBC & Chem 7: 01/26/18 04:26 01/26/18 04:26 - ABG Interpretation ABG results: PT/INR, D-dimer PT 13.3 Seconds (9.4-12.1) H 01/22/18 05:30 - VTE Documentation of Mechanical Device: Venous foot pump, device Consult Discharge Plan - Plan Instructions: Total Knee Replacement (DC), Diabetes Mellitus Type 2 in Adults (DC), Chronic Obstructive Pulmonary Disease (DC) Referrals: Pelon Allen MD [Primary Care Provider] - 02/02/18 2:00 pm Sushil Hernandez MD [Partnered Physician] - 01/30/18 10:00 am
== END 2018-01-28 14:51 | disposition home health service (06) | DRG 561 ==
LOC: INPGRE 15:02